=== PATIENT | male | born 1970 | race Caucasian/White ===

== ENCOUNTER 2017-10-14 09:00 | Emergency (ER) | payer MEDICAID, OTHER ==
[~2017-10-14] VITALS: Ht 182.9 cm; Wt 127.0 kg
[2017-10-14] MEDS ORDERED: HYDROCODONE/APAP 10-325 MG TABLET PO ONE (09:30)
[2017-10-14 09:39] VITALS: BP 142/90
--- NOTE | 2017-10-14 09:44 | NUR ---
Patient discharged to home in stable conditon. Written and verbal after care instructions given. Patient verbalizes understanding of instructions. Patient left with steady gait
[2017-10-14] MEDS ORDERED: HYDROCODONE/APAP 10-325 MG TABLET ONE (09:49)
== END 2017-10-14 09:45 | disposition home or self-care (01) ==
LOC: ER 09:00
DX: S50.01XA Contusion of right elbow, initial encounter (principal); Z88.0 Allergy status to penicillin; W18.30XA Fall on same level, unspecified, initial encounter; Y93.89 Activity, other specified; Y92.89 Other specified places as the place of occurrence of the external cause; Y99.8 Other external cause status
CPT/HCPCS: 73080; 73090; 99284; A4663